=== PATIENT | female | born 1970 | race Caucasian/White ===

== ENCOUNTER 2021-12-23 08:19 | Emergency (ER) | payer BC ==
[~2021-12-23] VITALS: Ht 167.6 cm; Wt 48.0 kg
[2021-12-23] VITALS (10 sets, daily range): BP systolic 122–158; BP diastolic 65–100
[2021-12-23] MEDS ORDERED: PROTONIX40 M2 PO (09:03)
[2021-12-23] MEDS ORDERED: CARAFATE1 GM PO (09:03)
[2021-12-23] MEDS ORDERED: PROAIR HFA108 MCG/AC IN (09:04)
[2021-12-23] MEDS ORDERED: PREMARIN0.3 MG PO (09:04)
[2021-12-23] MEDS ORDERED: ATIVAN1 MG PO (09:05)
[2021-12-23] MEDS ORDERED: PERCOCET1 TA2 PO (09:05)
[2021-12-23] MEDS ORDERED: GABAPENTIN100 MG PO (09:06)
[2021-12-23] MEDS ORDERED: ZOFRAN4 MG/TAB PO ×2 (09:07→12:41)
[2021-12-23] MEDS ORDERED: FLEXERIL5 M1 PO ×2 (09:07→12:41)
[2021-12-23 09:17] LABS: HEMATOCRIT 38.6 % (37.0-47.0); HEMOGLOBIN 12.5 g/dl (12.0-16.0); IMMATURE GRANULOCYTES 0.2 % (0.0-5.0); MEAN CELL VOLUME 95.3 fL CALC (80.0-100.0); MEAN CORPUSCULAR HGB 30.9 pG CALC (26.0-32.0); MEAN CORPUSCULAR HGB CONC 32.4 g/dL CAL (32.0-36.0); NEUT# 3.78 thou/uL (2.00-7.15); RED BLOOD COUNT 4.05 mill/uL (4.20-5.60); RED CELL DISTRI WIDTH 12.8 % (11.5-15.5)
[2021-12-23 10:04] LABS: ALBUMIN 3.7 g/dL (3.2-5.0); ALKALINE PHOSPHATASE 96 u/l (38-126); BILIRUBIN, TOTAL 0.1 mg/dL (0.0-1.4); BUN 23 mg/dL (7-17); BUN/CREATININE RATIO 30 (12-20 (CALC)); CARBON DIOXIDE 24 mmol/l (22-30); CHLORIDE 111 mmol/l (95-108); CREATININE 0.8 mg/dL (0.5-1.0); GFR > 60 ML/MIN (>=60 (CALC)); GFR FOR AFR.AMER. > 60 ML/MIN (>=60 (CALC)); LIPASE 283 u/l (23-300); SGOT/AST 21 u/l (14-36); SODIUM 140 mmol/l (137-146); TOTAL PROTEIN 6.8 g/dL (6.3-8.2)
[2021-12-23 10:06] LABS: ANION GAP 9 (6-22 (CALC)); POTASSIUM 4.1 mmol/l (3.5-5.1)
[2021-12-23] MEDS ORDERED: ATIVAN1 M1 PO (12:41)
[2021-12-23] MEDS ORDERED: PROAIR HFA108 MCG/AC PO (12:41)
== END 2021-12-23 13:04 | disposition home or self-care (01) | DRG 880 ==
LOC: ED 08:19
PROVIDERS: Family Medicine
DX: F41.9 Anxiety disorder, unspecified (principal); R10.84 Generalized abdominal pain